=== PATIENT | female | born 1995 | race Caucasian/White ===

== ENCOUNTER 2020-06-11 12:59 | Day surgery (SDC) | payer MEDICAID, OTHER ==
[~2020-06-11 12:59] MED LIST: CEFAZOLIN 2 GM/D5W RTU 2 GM/50 ML RTUPB IV PRN; CEFAZOLIN SODIUM 2 GM in DEXTROSE 5%-WATER 100 ML IV PRN; DEXAMETHASONE SOD PHOSPHATE INJ 4 MG/1 ML VIAL ONE; EPHEDRINE SULFATE INJ 50 MG/1 ML AMPULE ONE; FENTANYL CITRATE INJ/PF 100 MCG/2 ML AMPUL ONE; KETOROLAC TROMETHAMINE 60 MG/2 ML SDV ONE; MIDAZOLAM 2 MG/2 ML INJ ONE; ONDANSETRON HCL INJ/PF 4 MG/2 ML SDV ONE; PROPOFOL INJ 200 MG/20 ML VIAL IV ONE
[2020-06-11] MEDS ORDERED: CEFAZOLIN 2 GM/D5W RTU 2 GM/50 ML RTUPB IV ONE (13:26)
[2020-06-11] MEDS ORDERED: LIDOCAINE 1% INJ-PF (10 MG/ML) 30 ML SDV ONE (13:35)
[2020-06-11] MEDS ORDERED: MEPERIDINE HCL/PF INJ 25 MG/1 ML DISP.SYRIN IV PRN (14:02)
[2020-06-11] MEDS ORDERED: OXYCODONE-ACETAMINOPHEN 5-325 MG TABLET PO PRN ×2 (14:02)
[2020-06-11] MEDS ORDERED: DIPHENHYDRAMINE HCL 50 MG/ML VIAL IV PRN (14:02)
[2020-06-11] MEDS ORDERED: PROMETHAZINE HCL INJ 25 MG/1 ML VIAL IV PRN ×2 (14:02)
[2020-06-11] MEDS ORDERED: FENTANYL CITRATE INJ/PF 100 MCG/2 ML AMPUL IV PRN ×3 (14:02)
[2020-06-11] MEDS ORDERED: MORPHINE SULFATE 10 MG/ML INJ IV PRN (14:02)
[2020-06-11] MEDS ORDERED: BUPIVACAINE HCL 0.5 % INJ/PF 30 ML SDV ONE (15:14)
[2020-06-11] MEDS ORDERED: HYDROCODONE/ACETAMINOPHEN 5-325 MG TABLET PO PRN (15:24)
[2020-06-11] MEDS ORDERED: ONDANSETRON HCL 8 MG TABLET PO PRN (15:24)
--- NOTE | 2020-06-11 15:34 | Discharge Summary ---
Discharge Summary (SDC) - Discharge Final Diagnosis: Displaced Fracture of the proximal phalanx of the right index finger. Date of Surgery: 06/11/20 Discharge Date: 06/11/20 Condition: Good Treatment or Instructions: Schedule Follow Up w/ Dr. Christiano Aguilar @ [facility] for Surgery to be seen in 10-14 days or as scheduled [place]: [place]: [place]: May remove dressing on postop day #3, keep incision covered and dry. Ice and elevate Stool softener of choice when on pain medication. USE OF SOGG-EPA-NKYSODX IBUPROFEN: Ibuprofen (Advil, Nuprin, Medipren, Motrin IB) is a medication for fever and pain control. In addition, it has anti- inflammatory effects which may be beneficial, especially in the treatment of injuries. It's best to take ibuprofen with food. Persons with ulcer disease or allergy to aspirin should notify their physician of this before taking ibuprofen. Ibuprofen can be given every four to six hours, for a total of four doses daily. Age Pain or fever dose Antiinflammatory dose 6-8 yr 200 mg (1 tab) 200 mg (1 tab) 9-11 yr 200 mg (1 tab) 200-400 mg (1-2 tab) 11-14 yr 200-400 mg (1-2 tab) 400 mg (2 tab) 15-adult 400 mg (2 tab) 600 mg (3 tab) ORAL NARCOTIC MEDICATION: You have been given a prescription for pain control. This medication is a narcotic. It's best taken with food, as nausea can result if taken on an empty stomach. Don't operate machinery or drive within six hours of taking this medication. Do not combine this medicine with alcohol, or with any medication which can cause sedation (such as cold tablets or sleeping pills) unless you get permission from the physician. Narcotics tend to cause constipation. If possible, drink plenty of fluids and eat a diet high in fiber and fruits. Please be aware that prescription narcotics also have the potential for abuse. People become addicted to these medications because of the general sense of wellbeing that they induce. This feeling along with a significant reduction in tension, anxiety, and aggression provides a stimulating seductive quality to these drugs. Once your pain is under control, we encourage you to discard your unused narcotics. Prescriptions: Sulfamethoxazole/Trimethoprim [Bactrim Ds Tablet] 1 each PO BID #14 tablet Oxycodone HCl/Acetaminophen [Percocet 5-325 mg Tablet] 1 tab PO Q6 PRN #25 tab PRN Reason: Respiratory Treatments at Home: Deep Breathing/Coughing, Incentive Spirometer Discharge Activity: No Lifting Over 10 Pounds, No Lifting/Push/Pulling Report the Following to Your Physician Immediately: Shortness of Breath, Fever over 101 Degrees, Unusual Bleeding, Redness, Swelling, Warmth
--- NOTE | 2020-06-11 15:38 | Operative Report ---
Operative Report DATE OF SURGERY: 06/11/20 PREOPERATIVE DIAGNOSIS: Right index finger proximal phalanx fracture POSTOPERATIVE DIAGNOSIS: Same OPERATION: Open reduction internal fixation proximal phalanx fracture right index finger SURGEON: CROW PIERRE ANESTHESIA: GA COMPLICATIONS: None ESTIMATED BLOOD LOSS: Minimal PROCEDURE: Indication for above procedure: 25-year-old female who sustained a torsional injury to her index finger resulting in a comminuted fracture of the proximal phalanx given the comminution and unstable nature of the fracture we discussed treatment option including operative versus nonoperative intervention after discussing risk and benefits joint decision was made to proceed with operative treatment. Procedure In Detail: Patient was seen and evaluated in the preoperative holding area. The right upper extremity was initialized and marked. Patient received 2g of Ancef IV for bacterial prophylaxis. Patient was taken back to the operative room where transferred to the operative table and placed under general anesthesia. Once they were adequately anesthetized a nonsterile tourniquet was placed on the uppe r extremity. A surgical team debriefing was performed ensuring all instrumentation was available, the surgical procedure was discussed with possible concerns reviewed. The upper extremity was prepped with chlorhexidine and alcohol and draped in a sterile fashion. A timeout was done identifying correct patient, procedure and extremity everyone in attendance agree with this and verbalized no concerns. The extremity was exsanguinated the tourniquet was inflated to 250 mmHg. Close reduction was attempted however was unable to successfully anatomically reduced fracture less mid lateral skin incision was made blunt dissection was performed. The neurovascular bundles were identified and retracted. The transverse retinacular ligament was then released to expose the fracture. Wound was copiously irrigated with normal saline. Under direct visualization the fracture was anatomically reduced and confirmed under C arm fluoroscopy. Then proceeded with fixation utilizing interfragmentary screws. A 1.7 mm Héctor cortical screw was utilized drilling the near 4 cortices with appropriate size drill and then overdrilled proximally to further bring the fracture together. An additional 1.7 mm Héctor cortical screw was drilled again utilizing interfragmentary technique. Finally to ensuring additional fixation a 1.2 mm [place] cortical screw was placed with interfragmentary technique. At completion there is no evidence of malrotation with tenodesis, no evidence of finger deformity. C-arm fluoroscopy was obtained demonstrating near anatomic reduction. No evidence of hardware abnormality. Wound was copiously irrigated with normal saline. Peripheral bleeding was controlled. Skin was closed with interrupted nylon suture. 10 cc of 0.5% bupivacaine without epinephrine was injected for postoperative pain control. Tourniquet was deflated patient normal perfusion. Wound was dressed with Xeroform 4 x 4's and patient was placed in a radial gutter splint in the intrinsic plus position. Sponge counts, instrument counts, needle counts counts were correct. Patient was then awoken from anesthesia. Transferred from the operating room table to the operating room stretcher. There was no intraoperative complications patient tolerated procedure well stable to PACU. Postoperative plan: We will obtain x-rays at follow-up. Will begin range of motion 10 days postoperatively.
[2020-06-11] MEDS ORDERED: OXYCODONE-ACETAMINOPHEN 5-325 MG TABLET ONE (15:57)
--- NOTE | 2020-06-11 15:57 | RADIOLOGY REPORT (SQ) ---
EXAM DESCRIPTION: FINGER RIGHT; NO CHG FLUORO IMAGES COMPLETED DATE/TIME: 06/11/2020 3:25 pm REASON FOR STUDY: ORIF RIGHT INDEX FINGER ASSISTED WITH FLUORO IN OR S62.610A DISP FX OF PROXIMAL P HALANX OF RIGHT INDEX FINGER, COMPARISON: None. FLUOROSCOPY TIME: 1 minutes 40 seconds. 3 images saved to PACS. TECHNIQUE: Intra-operative images acquired during surgical procedure to evaluate progress. NUMBER OF IMAGES: 3 images. LIMITATIONS: None. FINDINGS: Images of the finger acquired during surgical fixation. IMPRESSION: IMAGE(S) OBTAINED DURING PROCEDURE. COMMENT: Quality ID [id number]: Final reports for procedures using fluoroscopy that document radiation exp osure indices, or exposure time and number of fluorographic images (if radiation exposure indices are not available) Please consult full operative report of the attending physician for description of the procedure. TECHNICAL DOCUMENTATION: JOB ID: [id number] 2010 [id number]- All Rights Reserved Reading location - IP/workstation name: [email or web address]
--- NOTE | 2020-06-11 15:57 | RADIOLOGY REPORT (SQ) ---
EXAM DESCRIPTION: FINGER RIGHT; NO CHG FLUORO IMAGES COMPLETED DATE/TIME: 06/11/2020 3:25 pm REASON FOR STUDY: ORIF RIGHT INDEX FINGER ASSISTED WITH FLUORO IN OR S62.610A DISP FX OF PROXIMAL P HALANX OF RIGHT INDEX FINGER, COMPARISON: None. FLUOROSCOPY TIME: 1 minutes 40 seconds. 3 images saved to PACS. TECHNIQUE: Intra-operative images acquired during surgical procedure to evaluate progress. NUMBER OF IMAGES: 3 images. LIMITATIONS: None. FINDINGS: Images of the finger acquired during surgical fixation. IMPRESSION: IMAGE(S) OBTAINED DURING PROCEDURE. COMMENT: Quality ID [id number]: Final reports for procedures using fluoroscopy that document radiation exp osure indices, or exposure time and number of fluorographic images (if radiation exposure indices are not available) Please consult full operative report of the attending physician for description of the procedure. TECHNICAL DOCUMENTATION: JOB ID: [id number] 2010 [employer]- All Rights Reserved Reading location - IP/workstation name: [email or web address]
[2020-06-11 17:47] VITALS: BP 123/77
--- NOTE | 2020-06-11 19:25 | Progress Note ---
Provider Note Provider Note: Patient had a small wound along the olecranon area of previous hardware. Small amount of purulence was expressed. This area was cleansed and sterile dressing was placed. Patient will be started on Bactrim prophylactically given the infectious nature we will continue to monitor.
== END 2020-06-11 17:30 | disposition home or self-care (01) ==
LOC: OROUT 12:59
PROVIDERS: ATTEND Orthopaedic Surgery
DX: S62.610A Displaced fracture of proximal phalanx of right index finger, initial encounter for closed fracture (principal); Y09 Assault by unspecified means; S51.009A Unspecified open wound of unspecified elbow, initial encounter; Z01.812 Encounter for preprocedural laboratory examination; Z20.828 Contact with and (suspected) exposure to other viral communicable diseases; F17.210 Nicotine dependence, cigarettes, uncomplicated
CPT/HCPCS: 26735; 87070; 87205; 87635; 81025; 73140; J2250; J3490 ×2; J1100; J1885; J3010; J2405; J2704; J0690; C9803; 87075; 87077; C1713; J7060